=== PATIENT | male | born 1935 | race Caucasian/White ===

== ENCOUNTER 2019-09-02 02:03 | Outpatient (CLI) | payer MEDICARE, SELFPAY ==
[2019-09-02 09:46] LABS: Abs Immature Grans 0.02 k/cumm (0.0-0.09); Absolute Basophil Count 0.07 k/cumm (0.0-0.2); Absolute Lymphocyte Count 1.56 k/cumm (1.2-3.4); Absolute Monocyte Count 0.74 k/cumm (0.11-0.7); Absolute Neutrophil Count 4.36 k/cumm (1.2-6.7); Eosinophils % 6.9; HCT 38.9 % (40.0-50.0); HGB 13.2 g/dL (13.5-17.5); Immature Grans % 0.3 %; Lymphocytes % 21.5; Mean Corp. HGB Concentration 33.9 g/dL (32.0-36.0); Mean Corpuscular Hemoglobin 31.9 pg (27.0-33.0); Mean Platelet Volume 8.9 fL (8.0-11.0); Monocytes % 10.2; Neutrophils % 60.1; Platelet Count 318 x1000/uL (130-400); RBC 4.14 m/cumm (4.50-6.00); RBC Distribution Width 13.7 % (11.8-14.1); White Blood Cell Count 7.25 k/cumm (4.4-10.8)
[2019-09-02 10:04] LABS: ALT 42 U/L (16-63); AST 22 U/L (15-37); Albumin 3.7 g/dL (3.4-5.0); Alkaline Phosphatase 99 U/L (46-116); BUN 32 mg/dL (7-18); Bilirubin, Total 0.3 mg/dL (0.2-1.0); CREATININE 1.28 mg/dL (0.70-1.30); Calcium 10.1 mg/dL (8.5-10.1); Chloride 105 mmol/L (98-107); Estimated GFR 53.54 (mL/min/1.73m2); FREE T4 1.02 ng/dL (0.76-1.46); Glucose 91 mg/dL (74-106); LDH 207 U/L (85-227); Potassium 4.4 mmol/L (3.5-5.1); Sodium 139 mmol/L (136-145); TSH 1.71 uIU/mL (0.36-3.74); Total Protein 7.4 g/dL (6.4-8.2)
== END 2019-09-02 02:23 ==
PROVIDERS: PCP Nurse Practitioner Adult Health; Visit Provider Nurse Practitioner Adult Health
DX: C34.90 Malignant neoplasm of unspecified part of unspecified bronchus or lung (principal); Z79.899 Other long term (current) drug therapy
CPT/HCPCS: 36415; 80053; 83615; 84439; 84443; 85025

== ENCOUNTER 2019-12-09 02:22 | Outpatient (CLI) | payer MEDICARE, SELFPAY ==
[2019-12-09 10:21] LABS: Abs Immature Grans 0.03 10^3/uL (0.0-0.06); Absolute Basophil Count 0.05 10^3/uL (0.0-0.2); Absolute Lymphocyte Count 1.14 10^3/uL (1.2-3.4); Absolute Neutrophil Count 6.94 10^3/uL (1.2-6.7); Basophils % 0.5; Eosinophils % 4.9; HCT 38.7 % (40.0-50.0); HGB 12.8 g/dL (13.5-17.5); Immature Grans % 0.3; Lymphocytes % 11.2; MCH 31.1 pg (27.0-33.0); MCHC 33.1 % (32.0-36.0); MCV 94.2 fL (80-95); MPV 8.8 fL (8.0-11.0); Monocytes % 14.8; Neutrophils % 68.3; Nucleated RBC 0 %; Platelet Count 294 10^3/uL (130-400); RBC 4.11 10^6/uL (4.36-5.78); RDW 12.9 % (11.8-14.1); WBC 10.16 10^3/uL (4.4-10.8)
[2019-12-09 10:52] LABS: ALT 95 U/L (16-63); AST 26 U/L (15-37); Albumin 3.2 g/dL (3.4-5.0); Alkaline Phosphatase 100 U/L (46-116); Anion Gap 6.4 mmol/L (3-11); BUN 49 mg/dL (7-18); Bilirubin, Total 0.3 mg/dL (0.2-1.0); CO2 28.6 mmol/L (21.0-32.0); CREATININE 1.61 mg/dL (0.70-1.30); Calcium 10.3 mg/dL (8.5-10.1); Chloride 105 mmol/L (98-107); Estimated GFR 41.09 (mL/min/1.73m2); Glucose 100 mg/dL (74-106); Potassium 4.9 mmol/L (3.5-5.1); Sodium 140 mmol/L (136-145)
[2019-12-09 11:22] LABS: FREE T4 1.03 ng/dL (0.76-1.46); LDH 218 U/L (85-227)
== END 2019-12-09 02:42 ==
PROVIDERS: Visit Provider Nurse Practitioner Adult Health
DX: C34.90 Malignant neoplasm of unspecified part of unspecified bronchus or lung (principal); Z79.899 Other long term (current) drug therapy
CPT/HCPCS: 36415; 80053; 83615; 84439; 84443; 85025